=== PATIENT | female | born 2000 | race African-American/Black ===

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

== ENCOUNTER 2022-01-04 21:10 | Emergency (ER) | payer OTHER ==
[~2022-01-04] VITALS: Ht 162.6 cm; Wt 90.9 kg
[2022-01-04 22:00] VITALS: BP 133/71
== END 2022-01-04 22:30 | disposition home or self-care (01) ==
LOC: EMS 21:12
DX: S69.91XA Unspecified injury of right wrist, hand and finger(s), initial encounter (principal); Z98.890 Other specified postprocedural states; X58.XXXA Exposure to other specified factors, initial encounter; Y93.89 Activity, other specified; Y92.89 Other specified places as the place of occurrence of the external cause; Y99.0 Civilian activity done for income or pay
CPT/HCPCS: 99283